=== PATIENT | male | born 1985 | race Two or more races ===

== ENCOUNTER 2024-11-23 21:13 | Emergency (ER) | payer MEDICAID, SELFPAY ==
[2024-11-23 21:13] VITALS: BMI 29.0
[2024-11-23 22:05] VITALS: BP 146/87; PULSE 53; RESP 17; TEMP 36.6; O2SAT 100
--- NOTE | 2024-11-23 22:10 | XR_ITS ---
Examination: CT abdomen and pelvis without contrast. Coronal 3-D reconstructions. Sagittal 2-D reconstructions. Date and time of exam:November 23, 2024, 1135 hours INDICATIONS: Flank pain nausea vomiting today CTDI: vol (mGy): 8.33 DLP: (mGycm): 525 Technique: Axial images of the abdomen have been obtained, 3 mm slice thickness Intravenous contrast material has not been administered. Low dose protocols were performed. One or more of the following dose reduction techniques were used; automated exposure control, adjustment of the mA and/or KV according to patient size, use of iterative reconstruction technique. Findings: No focal liver or splenic lesions No gallstones noted No pancreatic or adrenal mass Minimal right hydronephrosis, 3 mm right ureterovesical junction calculus No bowel obstruction Contracted urinary bladder IMPRESSION: Minimal right hydronephrosis, 3 mm right ureterovesical junction calculus
--- NOTE | 2024-11-23 22:12 | PD.EDRME ---
Rapid Medical Screening Exam RME Arrival date/time: 11/23/24 21:13 Chief Complaint: Nausea/Vomiting/Diarrhea Time Seen by Provider: 11/23/24 21:41 Vital signs: Vital Signs Temperature 97.8 F 11/23/24 22:05 Pulse Rate 53 L 11/23/24 22:05 Respiratory Rate 17 11/23/24 22:05 Blood Pressure 146/87 H 11/23/24 22:05 Pulse Oximetry (%) 100 11/23/24 22:05 Oxygen Delivery Method Room Air 11/23/24 22:05 E Narrative: Flank pain, n/v started today
[2024-11-23] MEDS: ONDANSETRON INJ 2 MG/ML INJ 2 ML 4 MG IM (22:16)
[2024-11-23] MEDS: KETOROLAC INJ 60 MG/2 ML VIAL 30 MG IM (22:16)
[2024-11-23 22:44] LABS: Basophils # (Auto) 0.1 Thou/mm3 (0.0-0.2); Basophils % (Auto) 0 % (0-2.5); Eosinophils % (Auto) 0 % (0-10); Hematocrit 43.1 % (41.0-53.0); Immature Granulocytes % (Auto) 0 % (0-0); Immature Granulocytes Auto 0.06 Thou/mm3 (0.00-0.00); Lymphocytes # (Auto) 1.1 Thou/mm3 (1.0-4.8); Lymphocytes % (Auto) 7 % (10-50); Mean Corpuscular HGB Conc 34.8 g/dl (31.0-37.0); Mean Corpuscular Hemoglobin 31.8 pg (25.0-35.0); Mean Corpuscular Volume 92 fL (80-100); Monocytes # (Auto) 0.3 Thou/mm3 (0.0-0.8); Monocytes % (Auto) 2 % (0-12); Neutrophils # (Auto) 14.8 Thou/mm3 (1.8-7.7); Neutrophils % (Auto) 91 % (37-80); Nucleated Red Blood Cell % 0 /100 WBC (0); Platelet Count 389 Thou/mm3 (140-440); RDW Standard Deviation 43.7 fL (35.1-43.9); Red Blood Count 4.71 Miln/mm3 (4.50-5.90); White Blood Count 16.3 Thou/mm3 (3.8-10.6)
[2024-11-23 23:06] LABS: Alanine Aminotransferase 21 U/L (10-49); Albumin, Serum 4.9 gm/dL (3.5-5.0); Albumin/Globulin Ratio 1.4 (1.2-2.2); Alcohol, Blood Medical < 3.0 mg/dL (0-10.0); Alkaline Phosphatase 134 U/L (46-116); Anion Gap 11 (7-16); Aspartate Amino Transferase 19 U/L (0-34); BUN/Creatinine Ratio 6 Ratio (12-20); Bilirubin,Total 0.4 mg/dL (0.3-1.2); Blood Urea Nitrogen 9 mg/dL (9-23); Calcium 9.8 mg/dL (8.3-10.6); Calcium (Corrected) 9.8 mg/dL (8.5-10.1); Carbon Dioxide 20.6 mMol/L (20.0-31.0); Chloride 109 mMol/L (98-107); Creatinine (Component) 1.4 mg/dL (0.6-1.3); Estimated Creatinine Clearance 79.1 mL/min (>60); Globulin 3.4 gm/dL (2.3-3.5); Glucose 122 mg/dL (74-106); Lipase 26 U/L (12-53); Osmolality,Calculated 280 (275-295); Potassium 3.4 mMol/L (3.4-5.1); Sodium 141 mMol/L (136-145); Total Protein 8.3 gm/dL (5.7-8.2); eGFR > 60 See Note
[2024-11-24 00:28] LABS: Collection Type, Urine Clean Catch
[2024-11-24 00:37] LABS: Amorphous Crystals,Urine Present (Absent); Bacteria,Urine Rare; Bilirubin,Urine Negative (Negative); Blood,Urine 2+ (Negative); Calcium Oxalate Crystals,Urine 3+; Clarity,Urine Turbid (Clear/Hazy); Color,Urine Yellow (Lt Yel-Yel); Glucose, Urine Trace (Negative); Ketones,Urine 1+ (Negative); Leukocyte Esterase,Urine Negative (Negative); Nitrite,Urine Negative (Negative); Protein,Urine 2+ (Neg - Trace); RBC,Urine 15 /hpf (0-3); Specific Gravity,Urine 1.045 (1.001-1.035); Squamous Epithelial Cell,Urine 3 /hpf (0-5); WBC,Urine 2 /hpf (0-5)
[2024-11-24 00:40] LABS: Amphetamine/Methamp Scrn,U Positive (Negative); Barbiturate Screen,Urine Negative (Negative); Benzodiazepines Screen,Urine Negative (Negative); Benzoylecgonine Screen, Ur Negative (Negative); Fentanyl Screen,Urine Negative (Negative); Opiate Screen,Urine Negative (Negative); THC Screen,Urine Positive (Negative)
--- NOTE | 2024-11-24 00:52 | PD.EDABDPN ---
ED Abdominal Pain RME/HPI General Chief Complaint: Nausea/Vomiting/Diarrhea Stated complaint: NAUSEA, VOMITING TODAY Time seen by provider: 11/23/24 21:41 Arrival date/time: 11/23/24 21:13 Source: patient, RN notes reviewed and old records reviewed Mode of arrival: ambulatory Limitations: no limitations RME / HPI RME / HPI narrative: 39yom presents to ED for right flank pain with sudden onset today. Patient reports nausea and vomiting. No fever, diarrhea or urinary symptoms reported. 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 Related Data Allergies Allergy/AdvReac Type Severity Reaction Status Date / Time No Known Allergies Allergy Verified 11/23/24 21:13 Review of Systems Review of Systems Systems Reviewed: All systems reviewed, normal except as documented Constitutional Constitutional: Denies chills and Denies fever(s) Gastrointestinal Gastrointestinal: Denies abdominal pain, Denies loose stools, Reports nausea and Reports vomiting Genitourinary Genitourinary: Denies dysuria, Reports flank pain and Denies hematuria Past Medical History Social History SMOKING STATUS: Current every day smoker SUBSTANCE USE: marijuana and methamphetamine ALCOHOL: Never Past Medical History Comments PMH COMMENT: denies pmhx ED Exam General Limitations: Present no limitations General appearance: Present alert, in no apparent distress and other (appears uncomfortable 2/2 pain) Head Head exam: Present atraumatic and normocephalic Eye Eye exam: Present normal appearance, PERRL and EOMI ENT ENT exam: Present normal exam and mucous membranes moist Neck Neck exam: Present normal inspection and full ROM Chest Chest inspection: Present normal inspection and symmetric chest wall rise Respiratory Respiratory exam: Present normal lung sounds bilaterally; Absent respiratory distress Cardiovascular Cardiovascular exam: Present normal rhythm and bradycardia (mild) Abdominal Exam Abdominal exam: Present soft; Absent distention, tenderness, guarding or rebound Extremities Exam Extremities exam: Present normal inspection and full ROM Back Exam Back exam: Absent CVA tenderness (R) or CVA tenderness (L) Neurological Exam Neurological exam: Present alert and oriented X3 Psychiatric Psychiatric exam: Present normal affect and normal mood Skin Skin exam: Present warm, dry, intact and normal color Course Quality Measures none Orders Category Date Time Status CT abdomen pelvis wo con Stat Exams 11/23/24 22:10 Completed Alcohol, Blood Medical Stat Lab 11/23/24 22:26 Completed CBC Stat Lab 11/23/24 22:26 Completed CMP [Comprehensive Metabolic Panel] Stat Lab 11/23/24 22:26 Completed Drug Screen,Urine Stat Lab 11/24/24 00:23 Completed Lipase Stat Lab 11/23/24 22:26 Completed UA [Urinalysis] Stat Lab 11/24/24 00:23 Completed Ketorolac Inj [Toradol Inj] Med 11/23/24 22:10 Discontinued 30 mg IM X1 ONE Ondansetron Inj [Zofran Inj] Med 11/23/24 22:13 Discontinued 4 mg IM X1 ONE Ondansetron Odt [Zofran Odt] Med 11/23/24 22:10 Discontinued 4 mg PO X1 ONE Vital Signs Vital signs: Vital Signs Temperature 97.8 F 11/23/24 22:05 Pulse Rate 53 L 11/23/24 22:05 Respiratory Rate 17 11/23/24 22:05 Blood Pressure 146/87 H 11/23/24 22:05 Pulse Oximetry (%) 100 11/23/24 22:05 Oxygen Delivery Method Room Air 11/23/24 22:05 Abdominal Pain MDM MDM Narrative MDM Narrative:: 39yom presents to ED for right flank pain with sudden onset today. Patient reports nausea and vomiting. No fever, diarrhea or urinary symptoms reported. 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 Patient eloped prior to discharge. Patient data External records reviewed:: [facility] previous records (05/22/2018 ED visit for scalp laceration) Clinical information provided by:: patient Social determinants that could affect healthcare access:: other (specify) (poor access to healthcare) Patient has the following chronic illnesses:: none How is presenting disease/condition affected by chronic disease/condition?: no chronic disease Evaluation data The following diagnostics were reviewed and interpreted by me:: lab results and radiology exam(s) Lab and/or radiology exams considered but not ordered:: none Interpretation Summary: CT abd/pelvis: 3mm right ureteral stone near UVJ Mild leukocytosis Cr 1.4, mild elevation UA +blood Medications / Prescriptions Medications or Prescriptions considered but not ordered:: No antibiotics recommended at this time Medication administrations:: Medication Administration History Discontinued Medications Ketorolac Tromethamine (Ketorolac Inj 60 Mg/2 Ml Vial) 30 mg IM X1 ONE Stop: 11/23/24 22:11 Last Admin: 11/23/24 22:16 Dose: 30 mg Documented By: Ondansetron HCl (Ondansetron Odt 4 Mg Tabrap) 4 mg PO X1 ONE; Protocol Stop: 11/23/24 22:11 Last Admin: 11/23/24 22:25 Dose: Not Given Documented By: Non-Admin Reason: Cancelled by Provider Ondansetron HCl (Ondansetron Inj 2 Mg/Ml Inj 2 Ml) 4 mg IM X1 ONE; Protocol Stop: 11/23/24 22:14 Last Admin: 11/23/24 22:16 Dose: 4 mg Documented By: Above medications administered in ED Consultations Consultation(s) initiated? (list below): No Diagnosis Differential diagnosis abdominal pain: abdominal pain, acute appendicitis, calculus of kidney, gastroenteritis and pancreatitis Most likely diagnosis given after review of the tests above:: Renal colic, kidney stone Admission Indicated Admission indicated?: not indicated Admission Request Was there a request for admission?: No Disposition Plan Disposition Plan: other (specify) (Eloped) Discharge Plan Plan Patient Disposition: Elopement Patient condition on transfer: Stable Prescriptions/Referrals Referrals: No Primary/Family,Physician [Primary Care Provider] - In 1 week Problem List Clinical Impression: Right ureteral stone Patient/Caregiver Discharge Instructions Print Language: Frisian NICKI/CELI Supervising Physician MANDEEP Supervising Physician: García
[2024-11-24 01:15] VITALS: BP 124/81; PULSE 58; RESP 17; TEMP 37; O2SAT 98
--- NOTE | 2024-11-24 04:07 | PC.NURSE ---
CALLLED PATIENT IN THE LOBBY AND OUTSIDE, NO ANSWER RECEIVED.
--- NOTE | 2024-11-24 04:22 | PC.NURSE ---
CALLED PATIENT IN THE LOBBY AND OUTSIDE, NO ANSWER RECEIVED FROM PATIENT.
--- NOTE | 2024-11-24 04:31 | PC.NURSE ---
CALLED PATIENT IN THE LOBBY AND OUTSIDE, NO ANSWER RECEIVED FROM PATIENT.
== END 2024-11-24 04:32 | disposition left against medical advice (07) ==
PROVIDERS: Physician Assistant; Emergency Provider Emergency Medicine
DX: N13.2 Hydronephrosis with renal and ureteral calculous obstruction (principal); Z53.29 Procedure and treatment not carried out because of patient's decision for other reasons
CPT/HCPCS: 36415; 74176; 80053; 80307; 80320; 81001; 83690; 85025; 96372; 99284; J1885; J2405; G0480